=== PATIENT | male | born 1985 | race Caucasian/White ===

== ENCOUNTER 2017-08-17 13:04 | Emergency (ER) | payer BC ==
[2017-08-17] MEDS ORDERED: Lidocaine 1% 10 ML MDV INJECT ONE (15:14)
--- NOTE | 2017-08-17 15:25 | EDM.PDOC ---
ED HPI GENERAL MEDICAL PROBLEM - General Chief Complaint: Laceration Stated Complaint: LEFT LEG LAC Time Seen by Provider: 08/17/17 15:15 Source of Information: Reports: Patient - History of Present Illness INITIAL COMMENTS - FREE TEXT/NARRATIVE: Patient is here for evaluation of a laceration to his left abarca that it occurred just prior to arrival. He states that he was in the process of trimming the tree at his mother's house with a machete and this came down and struck him in the abarca. Patient denies any chronic medical conditions. He is not diabetic. He has no bleeding or clotting disorders. His last tetanus injection was approximately 3 years ago per his report. Onset: Sudden Left Leg Pain Score (Numeric/FACES): 2 Past Medical History - Past Health History Medical/Surgical History: Denies Medical/Surgical History Social & Family History - Family History Family Medical History: Noncontributory - Tobacco Use Smoking Status *Q: Never Smoker - Recreational Drug Use Recreational Drug Use: No ED ROS GENERAL - Review of Systems Review Of Systems: See Below Constitutional: Reports: No Symptoms Musculoskeletal: Reports: No Symptoms Skin: Reports: Wound Neurological: Reports: No Symptoms ED EXAM, SKIN/RASH Exam: See Below Exam Limited By: No Limitations General Appearance: Alert, WD/WN, No Apparent Distress Peripheral Pulses: 2+: Posterior Tibial (L) Extremities: Other (Patient has full range of motion of his left lower extremity.) Neurological: Alert, Oriented, No Motor/Sensory Deficits Skin: Warm, Dry Location, Skin: Lower Extremity, Left, Other (Laceration measuring 7.5 cm. This is fairly straight and not contaminated.) ED SKIN PROCEDURES - Laceration/Wound Repair Left Lower Leg Lac/Wound length In cm: 7.5 Appearance: Subcutaneous, Linear, Clean Distal NVT: Neuro & Vascular Intact Anesthetic Type: Local Local Anesthesia - Lidocaine (Xylocaine): 1% Plain Local Anesthetic Volume: Other (10) Skin Prep: Chlorhexidine (Hibiciens), Saline Exploration/Debridement/Repair: Wound Explored, In a Bloodless Field, No Foreign Material Found Closed with: Sutures Suture Size: 4-0 # of Sutures: 11 Suture Type: Nylon, Interrupted, Simple Sterile Dressing Applied: Provider Tetanus Status Addressed: Yes (Patient reports tetanus shot within the last 3 years.) Complications: No Course - Vital Signs Last Recorded V/S: Last Vital Signs Temp 97.6 F 08/17/17 13:55 Pulse 47 L 08/17/17 13:55 Resp 20 08/17/17 13:55 BP 125/85 08/17/17 13:55 Pulse Ox 100 08/17/17 13:55 - Orders/Labs/Meds Meds: Medications Discontinued Medications Generic Name Dose Route Start Last Admin Trade Name Fauzia PRN Reason Stop Dose Admin Lidocaine HCl 10 ml 08/17/17 15:14 Xylocaine 1% INJECT 08/17/17 15:15 ONETIME ONE - Re-Assessments/Exams Free Text/Narrative Re-Assessment/Exam: 7.5 cm laceration was repaired with 11 simple sutures. Patient tolerated this well. Wound care instructions and monitoring for infection was discussed with patient verbalized understanding. Offered prophylactic antibiotic and he declines this. Tetanus is up-to-date. Patient will follow up with his PCP for suture removal in 7-10 days or return to the emergency room if needed. 08/17/17 21:39 Departure - Departure Time of Disposition: 15:53 Disposition: Home, Self-Care 01 Condition: Good Clinical Impression: Laceration of leg Qualifiers: Encounter type: initial encounter Laterality: left Qualified Code(s): S81.812A - Laceration without foreign body, left lower leg, initial encounter - Discharge Information Instructions: Wound Care, Adult, Laceration Care, Adult, [id number], Stitches , [place], or Adhesive Wound Closure Referrals: Kelby Duke PA-C [Physician Detective Bureau Chief] - Forms: ED Department Discharge Additional Instructions: Keep wound clean and dry. Cover if your pants are rubbing on it or if you're going to be working out in a dirty environment. Monitor for any increasing redness or drainage. Follow-up in the clinic in 7-10 days for suture removal or sooner if needed.
== END 2017-08-17 16:05 | disposition home or self-care (01) ==
LOC: JD.ED 13:04
DX: S81.812A Laceration without foreign body, left lower leg, initial encounter (principal); W22.8XXA Striking against or struck by other objects, initial encounter
CPT/HCPCS: 12002; 99283-25

== ENCOUNTER → 2019-06-22 | Day surgery (SDC) | payer BC ==
[~2019-06-22] MED LIST: Acetaminophen/HYDROcodone 325-5 MG Tab PO SCH; Citric Acid/Sodium Citrate Solution 30 ML Cup ONE; HYDROmorphone 0.5 MG/0.5 ML Syringe IVPUSH PRN; Ketamine 500 mg/10 ML MDV ONE; Lactated Ringers 1,000 ML IV SCH; Lidocaine 1%/Sod Bicarbonate in NS 8.4% 1 ML Syringe IDERM PRN; Metoclopramide 10 MG/2 ML SDV ONE; Midazolam 1 MG/ML 2 ML SDV ONE; Ondansetron 4 MG/2 ML SDV IVPUSH PRN; Ondansetron 4 MG/2 ML SDV ONE; Propofol 200 MG/20 ML SDV ONE; Sodium Chloride 0.9% 10 ML Syringe FLUSH PRN; Succinylcholine/Sod PF 100 MG/5 ML SYRINGE IV ONE; fentaNYL 100 MCG/2 ML SDV IVPUSH PRN; fentaNYL 100 MCG/2 ML SDV ONE
--- NOTE | 2019-06-22 11:41 | PCM.PREANE ---
Preanesthetic Assessment - Procedure Proposed Procedure: right shoulder closed reduction - Anesthesia/Transfusion/Family Hx Anesthesia History: Prior Anesthesia Without Reaction Family History of Anesthesia Reaction: No Transfusion History: No Prior Transfusion(s) - Review of Systems General: No Symptoms Pulmonary: No Symptoms Cardiovascular: No Symptoms Gastrointestinal: No Symptoms Neurological: No Symptoms Other: Reports: None - Physical Assessment NPO Status Date: 06/22/19 NPO Status Time: 09:00 (chicken strips and water) Vital Signs: 143/87 63 95% 16 98.0 Height: 6 ft 3 in Weight: 113.217 kg ASA Class: 2 Mental Status: Alert & Oriented x3 Airway Class: Mallampati = 1 Dentition: Reports: Normal Dentition Thyro-Mental Finger Breadths: 3 Mouth Opening Finger Breadths: 3 ROM/Head Extension: Full Lungs: Clear to Auscultation, Normal Respiratory Effort Cardiovascular: Regular Rate, Regular Rhythm - Blood Blood Available: No - Acknowledgements Anesthesia Type Planned: General Anesthesia, MAC Pt an Appropriate Candidate for the Planned Anesthesia: Yes Alternatives and Risks of Anesthesia Discussed w Pt/Guardian: Yes Pt/Guardian Understands and Agrees with Anesthesia Plan: Yes PreAnesthesia Questionnaire - Past Health History Medical/Surgical History: Denies Medical/Surgical History Cardiovascular History: Reports: None Respiratory History: Reports: None Gastrointestinal History: Reports: None Endocrine/Metabolic History: Reports: Obesity/BMI 30+ - Past Surgical History HEENT Surgical History: Reports: Oral Surgery - SUBSTANCE USE Smoking Status *Q: Former Smoker (high sschool) Tobacco Use Within Last Twelve Months: No Second Hand Smoke Exposure: Yes Days Per Week of Alcohol Use: 2 Number of Drinks Per Day: 6 Total Drinks Per Week: 12 Recreational Drug Use History: No
--- NOTE | 2019-06-22 13:06 | PCM.POSTAN ---
POST ANESTHESIA ASSESSMENT - MENTAL STATUS Mental Status: Alert, Oriented - VITAL SIGNS Vital Signs: Last Vital Signs Temp 99.0 F 06/22/19 11:18 Pulse 63 06/22/19 11:18 Resp 16 06/22/19 11:18 BP 143/87 H 06/22/19 11:18 Pulse Ox 95 06/22/19 11:18 1254 154/101 99% 86 21 97.2 - RESPIRATORY Respiratory Status: Respiratory Rate WNL, Airway Patent, O2 Saturation Stable, Supplemental Oxygen - CARDIOVASCULAR CV Status: Pulse Rate WNL, Blood Pressure Stable - GASTROINTESTINAL GI Status: No Symptoms - PAIN Pain Score: 4 (throat is sore and shoulder hurts) - POST OP HYDRATION Hydration Status: Adequate & Stable
--- NOTE | 2019-06-22 13:21 | CR ---
Right shoulder: Single fluoroscopic spot view of the right shoulder was obtained utilizing C-arm device. Dislocated right shoulder is seen with impacted fracture being noted. Fluoroscopy time given as 105.7 seconds. Impression: 1. Dislocated right shoulder with impacted fracture. Diagnostic code #3 Study was dictated in MDT
--- NOTE | 2019-06-22 14:02 | PCM48HPAN ---
Post Anesthesia Note - EVALUATION WITHIN 48HRS OF ANESTHETIC Vital Signs in Normal Range: Yes Patient Participated in Evaluation: Yes Respiratory Function Stable: Yes Airway Patent: Yes Cardiovascular Function Stable: Yes Hydration Status Stable: Yes Pain Control Satisfactory: Yes (06/14, tolerable) Nausea and Vomiting Control Satisfactory: Yes Mental Status Recovered: Yes Vital Signs: Last Vital Signs Temp 98.3 F 06/22/19 13:45 Pulse 66 06/22/19 13:45 Resp 11 L 06/22/19 13:45 BP 152/84 H 06/22/19 13:45 Pulse Ox 97 06/22/19 13:45 - COMMENTS/OBSERVATIONS Free Text/Narrative:: Patient is ready to be discharged home, instructions provided. Will return on Mod[place] 06/24 for ORIF
--- NOTE | 2019-06-23 08:10 | CT ---
CT right shoulder Technique: Multiple axial sections were obtained through the right shoulder. Reconstructed coronal and sagittal images were obtained. Findings: Inferior and anterior dislocation is noted of the humeral head in relation to the glenoid. Comminuted impaction fracture is seen from the inferior and anterior glenoid. There is displacement of fracture fragments in a lateral direction up to 1.7 cm. No discrete scapular fracture is appreciated. Parenchymal density is noted posteriorly within the right lung most likely representing atelectasis. Impression: 1. Inferior and anterior dislocation of the right shoulder. 2. Comminuted fracture with displacement caused by impaction of the inferior and anterior glenoid above the right humeral head. 3. Increased density posteriorly within the right lung most likely representing atelectasis. Diagnostic code #3 Study was dictated in MDT MTDD
--- NOTE | 2019-06-28 18:20 | PCM.OPNOTE ---
- General Post-Op/Procedure Note Date of Surgery/Procedure: 06/22/19 Operative Procedure(s): closed reduction attempt of right shoulder fracture dislocation Pre Op Diagnosis: right shoulder anterior fracture dislocation Post-Op Diagnosis: Same Anesthesia Technique: General ET Tube Primary Surgeon: Marvin Burger Anesthesia Provider: Jj Beckwith E[place] in mLs: 0 Complications: None Condition: Good
--- NOTE | 2019-06-29 08:10 | OR ---
DATE OF OPERATION: 06/22/2019 SURGEON: Marvin Burger MD OPERATION PERFORMED: Closed reduction attempt of right shoulder fracture dislocation. PREOPERATIVE DIAGNOSIS: Right shoulder anterior fracture dislocation. POSTOPERATIVE DIAGNOSIS: Right shoulder anterior fracture dislocation. ANESTHESIA: General endotracheal intubation. ANESTHESIA PROVIDER: Jj Beckwith CRNA. POLISHER AND BUFFER: None. ESTIMATED BLOOD LOSS: Not applicable. COMPLICATIONS: None. CONDITION: Stable. DESCRIPTION OF PROCEDURE: The patient was identified in the preop holding area. Proper site was marked and identified. The patient was taken back to the operative theater where after time-out was performed a closed reduction attempt was performed on the patient's right shoulder anterior fracture dislocation. Secondary to the large engaging fracture bed of the greater tuberosity, it was hooked around the anterior portion of the glenoid and its chronicity of nearly being 6 weeks out. This led to the failed attempt of the anterior shoulder dislocation relocation. At this time, the patient was sent to the PACU in a sling, and we will plan for open reduction next Tuesday. MMODAL /[id number]
== END | disposition home or self-care (01) ==
LOC: JD.SDS 11:12
PROVIDERS: ATTEND Orthopaedic Surgery
DX: S42.141A Displaced fracture of glenoid cavity of scapula, right shoulder, initial encounter for closed fracture (principal); I10 Essential (primary) hypertension; E66.9 Obesity, unspecified; X58.XXXA Exposure to other specified factors, initial encounter; Z68.31 Body mass index [BMI] 31.0-31.9, adult
CPT/HCPCS: 23575; 73200; 76000; 76377; 87641; A9270; J0330; J2250; J2405; J2704; J2765; J3010; J7120

== ENCOUNTER 2019-06-25 06:33 | Day surgery (SDC) | payer BC ==
--- NOTE | 2019-06-24 12:56 | PCM.PREANE ---
Preanesthetic Assessment - Procedure Proposed Procedure: ORIF of right shoulder dislocation of greater tuberosity fracture. - Anesthesia/Transfusion/Family Hx Anesthesia History: Prior Anesthesia Without Reaction Family History of Anesthesia Reaction: No Transfusion History: No Prior Transfusion(s) Intubation History: Unknown - Review of Systems General: No Symptoms Pulmonary: No Symptoms (Former smoker in high school. ETOH: twice/week(6) drinks /No recreational drugs) Cardiovascular: No Symptoms Gastrointestinal: No Symptoms Neurological: No Symptoms Other: Reports: None - Physical Assessment NPO Status Date: 06/25/19 NPO Status Time: 00:01 Vital Signs: HR:81 SAT:95% BP:158/96 RESP:17 TEMP:97.9 Height: 1.91 m Weight: 111 kg ASA Class: 2 Mental Status: Alert & Oriented x3 Airway Class: Mallampati = 2 Dentition: Reports: Normal Dentition, Caries Thyro-Mental Finger Breadths: 3 Mouth Opening Finger Breadths: 3 ROM/Head Extension: Full Lungs: Clear to Auscultation, Normal Respiratory Effort Cardiovascular: Regular Rate, Regular Rhythm, No Murmurs - Lab Values: MRSA: negative All labs reviewed and noted and within acceptable ranges to proceed with scheduled procedure. - Allergies Allergies/Adverse Reactions: Allergies Allergy/AdvReac Type Severity Reaction Status Date / Time No Known Allergies Allergy Verified 06/25/19 07:04 - Anesthesia Plan Pre-Op Medication Ordered: None - Acknowledgements Anesthesia Type Planned: General Anesthesia (With a Right ISB under US guidance for post operative pain control requested by Dr. Burger.) Pt an Appropriate Candidate for the Planned Anesthesia: Yes Alternatives and Risks of Anesthesia Discussed w Pt/Guardian: Yes Pt/Guardian Understands and Agrees with Anesthesia Plan: Yes PreAnesthesia Questionnaire - Past Health History Medical/Surgical History: Denies Medical/Surgical History Cardiovascular History: Reports: None Respiratory History: Reports: None Gastrointestinal History: Reports: None Endocrine/Metabolic History: Reports: Obesity/BMI 30+ - Past Surgical History HEENT Surgical History: Reports: Oral Surgery - SUBSTANCE USE Smoking Status *Q: Never Smoker Recreational Drug Use History: No - HOME MEDS Home Medications: Home Meds Acetaminophen/HYDROcodone [[place] 325-5 MG] 1 - 2 tab PO Q6H PRN #20 tablet 06/24 [Rx] - CURRENT (IN HOUSE) MEDS Current Meds: Current Medications Lactated Ringer's (Ringers, Lactated) 1,000 mls @ 125 mls/hr IV ASDIRECTED DANYA Stop: 06/25/19 23:00 Lidocaine/Sodium Bicarbonate (Buffered Lidocaine 1% In Ns 8.4%) 0.25 ml IDERM ONETIME PRN PRN Reason: Prior to IV Start Stop: 06/25/19 18:00 Sodium Chloride (Saline Flush) 10 ml FLUSH ASDIRECTED PRN PRN Reason: Keep Vein Open Stop: 06/25/19 18:00
[~2019-06-25 06:33] MED LIST changes: -Acetaminophen/HYDROcodone 325-5 MG Tab PO SCH; -Citric Acid/Sodium Citrate Solution 30 ML Cup ONE; -HYDROmorphone 0.5 MG/0.5 ML Syringe IVPUSH PRN; -Ketamine 500 mg/10 ML MDV ONE; +Lidocaine 1% 2 ML ONE; -Metoclopramide 10 MG/2 ML SDV ONE; -Midazolam 1 MG/ML 2 ML SDV ONE; -Ondansetron 4 MG/2 ML SDV IVPUSH PRN; -Ondansetron 4 MG/2 ML SDV ONE; -Propofol 200 MG/20 ML SDV ONE; -Succinylcholine/Sod PF 100 MG/5 ML SYRINGE IV ONE; -fentaNYL 100 MCG/2 ML SDV IVPUSH PRN; -fentaNYL 100 MCG/2 ML SDV ONE
[2019-06-25] MEDS ORDERED: EPINEPHrine 1 MG/ML SDV ONE (06:34)
[2019-06-25] MEDS ORDERED: Ropivacaine 0.5% 5 MG/ML 30 ML SDV ONE (06:34)
[2019-06-25] MEDS ORDERED: Lactated Ringers 1,000 ML ONE ×2 (07:04→09:55)
[2019-06-25] MEDS ORDERED: Lidocaine 1% 6 ML ONE (07:04)
[2019-06-25] MEDS ORDERED: ceFAZolin 1 GM Vial ONE (07:04)
[2019-06-25] MEDS ORDERED: Propofol 200 MG/20 ML SDV ONE (07:04)
[2019-06-25] MEDS ORDERED: Ketorolac 30 MG/ML SDV ONE (07:04)
[2019-06-25] MEDS ORDERED: Midazolam 1 MG/ML 2 ML SDV ONE (07:04)
[2019-06-25] MEDS ORDERED: Dexamethasone 4 MG/ML 5 ML MDV ONE (07:04)
[2019-06-25] MEDS ORDERED: Ondansetron 4 MG/2 ML SDV ONE (07:04)
[2019-06-25] MEDS ORDERED: Rocuronium 50 MG/5 ML Vial ONE ×2 (07:04→09:13)
[2019-06-25] MEDS ORDERED: fentaNYL 250 MCG/5 ML SDV ONE ×2 (07:05→07:59)
--- NOTE | 2019-06-25 07:47 | PCM.SN ---
- Free Text/Narrative Note: Date: 06/25/2019 Time Out: 0725 Start: 726 Stop: 738 Current Procedure: Right interscalene block under US guidance for postoperative pain control requested by Dr. Burger. Patient chart reviewed, risk/benefits discussed with patient, consent obtained. Patient positioned supine, monitors/alarms on, oxygen placed via nasal cannula at 2 LPM. IV sedation administered: Versed 2mg IV, Fentanyl 150mcg IV given in preop prior to block placement. Right shoulder prepped with two chloropreps. Sterile drapes placed with aseptic technique noted. Under US guidance, right subclavian artery visualized along with the right brachial plexus. Plexus followed up to C6 cricoid level, and area localized with 2mls of 1% lidocaine. 22gauge 2 inch stimiplex needle advanced under US with 0.6mV with stimulation of biceps noted. Good stimulation noted with decreased voltage and absent at 0.4mVs. 1ml of Normal Saline injected with loss of stimulation noted to confirm needle not placed intraneurally. Incremental dosing of 5mls with negative aspiration noted prior to each injection of 0.5% ropivacaine with 1:200,000 epinephrine. Total volume=25mls. Please refer to nurses noted for vital signs. Azalea Mehta CRNA TeleHealth - TeleHealth Patient Service Facility: [facility]: [facility] Informed Consent: Telemedicine Audio/Visual Informed Consent: The risks, benefits, and alternatives to the telehealth visit were explained to the patient and the patient consented to this modality of care. The telehealth visit was carried out via a secure, web-based conferencing system. This telemedicine service was a real-time, two-way interactive video and communication between the patient and the provider. All the parties involved were identified and approved by the patient prior to the visit. Any physical exam was assisted by the patient. Unless noted otherwise, the provider was located at their usual clinic location , and the patient was at their place of residence. Patient identity was confirmed by having the patient state their name and date of . All communications with the patient (verbal, audiovisual, and written) were documented in the patients medical record per documentation standards.
[2019-06-25] MEDS ORDERED: Albuterol 0.083% 2.5 MG/3 ML Neb Soln NEB PRN (08:28)
[2019-06-25] MEDS ORDERED: Ondansetron 4 MG/2 ML SDV IVPUSH PRN (08:28)
[2019-06-25] MEDS ORDERED: fentaNYL 100 MCG/2 ML SDV IVPUSH PRN (08:28)
[2019-06-25] MEDS ORDERED: HYDROmorphone 0.5 MG/0.5 ML Syringe IVPUSH PRN (08:29)
--- NOTE | 2019-06-25 11:36 | PCM.POSTAN ---
POST ANESTHESIA ASSESSMENT - MENTAL STATUS Mental Status: Alert - VITAL SIGNS Vital Signs: Last Vital Signs Temp 36.2 C 06/25/19 11:30 Pulse 69 06/25/19 11:30 Resp 15 06/25/19 11:30 BP 157/94 H 06/25/19 11:30 Pulse Ox 98 06/25/19 11:30 - RESPIRATORY Respiratory Status: Respiratory Rate WNL, Airway Patent, O2 Saturation Stable, Supplemental Oxygen - CARDIOVASCULAR CV Status: Pulse Rate WNL, Blood Pressure Stable - GASTROINTESTINAL GI Status: No Symptoms - POST OP HYDRATION Hydration Status: Adequate & Stable
--- NOTE | 2019-06-25 11:49 | PCM48HPAN ---
Post Anesthesia Note - EVALUATION WITHIN 48HRS OF ANESTHETIC Vital Signs in Normal Range: Yes Patient Participated in Evaluation: Yes Respiratory Function Stable: Yes Airway Patent: Yes Cardiovascular Function Stable: Yes Hydration Status Stable: Yes Pain Control Satisfactory: Yes Nausea and Vomiting Control Satisfactory: Yes Mental Status Recovered: Yes Vital Signs: Last Vital Signs Temp 36.4 C 06/25/19 11:45 Pulse 65 06/25/19 11:45 Resp 15 06/25/19 11:45 BP 155/96 H 06/25/19 11:45 Pulse Ox 97 06/25/19 11:45
--- NOTE | 2019-06-25 11:51 | CR ---
Right shoulder: 9 fluoroscopic spot views were obtained of the right shoulder utilizing C arm device. Comparison: Previous CT right shoulder study of 06/22/19 and right fluoroscopic shoulder exam of 06/22/19. Study shows reduction of previous dislocation. Fracture is again noted. Fluoroscopy time is given as 105.7 seconds. Impression: 1. Findings as noted above. Diagnostic code #2 This report was dictated in MDT
[2019-06-25] MEDS ORDERED: Acetaminophen/HYDROcodone 325-5 MG Tab PO SCH (13:01)
--- NOTE | 2019-06-28 18:24 | PCM.OPNOTE ---
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
--- NOTE | 2019-06-29 09:06 | OR ---
DATE OF OPERATION: 06/25/2019 SURGEON: Marvin Burger MD OPERATIVE PROCEDURE: Open reduction internal fixation of right greater tuberosity with open reduction of right anterior shoulder dislocation with open capsular shift. PREOPERATIVE DIAGNOSIS: Right anterior chronic fracture dislocation with greater tuberosity fracture. POSTOPERATIVE DIAGNOSIS: Right anterior chronic fracture dislocation with greater tuberosity fracture. ANESTHESIA: General endotracheal intubation with regional interscalene block. ANESTHESIA PROVIDER: Azalea Mehta CRNA. ASSISTANTS: Beth Victoria PA-C, and Siobhan Mi LPN. ESTIMATED BLOOD LOSS: 400 mL. COMPLICATIONS: None. CONDITION: Stable. DESCRIPTION OF PROCEDURE: The patient was identified in the preop holding area. Proper site was marked and identified by the surgeon. The patient was taken back to the operative theater where after adequate anesthesia OR time-out was performed. The patient received 2 g IV Ancef. He was placed in a reverse Trendelenburg position and standard deltopectoral incision was made. This was taken down cephalic vein, which was identified and was retracted laterally and the deltopectoral interval was made. The patient did have significantly large shoulder, which did make it a little more difficult along with the patient's chronic dislocation distorting anatomy. Now, I was able to identify the coracoid as well as the conjoined tendon and palpate the biceps tendon. At this time, I was able to attempt a closed reduction maneuver, but it again failed as the humerus was lodged behind the anterior portion of the glenoid and under the conjoined tendon with the biceps tendon dislocated. At this point, an incision was made at the biceps tendon and a biceps tenotomy was then performed and a subpectoral tenodesis was open. Subpectoral tenodesis was then performed at this time. I decided at this point that I would do a takedown of the subscapularis tendon and then anterior capsular shift after reduction, I did an incision of the subscapularis tendon roughly 1 cm medial to its insertion on the lesser tuberosity. This was then tagged with #5 FiberWire and was peeled back from the capsule. A capsulotomy was performed off the anterior humerus around the neck. Even after this though secondary to the chronicity, it became very difficult to reduce this. There were pieces of the greater tuberosity that were nonviable, that were just in the wound bed and when we irrigated would come out of the wound bed as most of them were nonviable and not attached to any tissue at this point any longer. After doing the open capsulotomy, I had to place my fingers around the humeral head, placed it into position so that we come unlocked, but it was still very difficult secondary to the chronicity of this fracture dislocation and the patient's BMI. After this, though I was able to get it reduced and decided to do an anterior capsular shift. The capsule then was brought over with anchors and then #5 FiberWire [id number] stitches were used to repair the subscapularis tendon as well as an anterior capsular shift, so that the patient was a little more tight in external rotation, but it kept the patient from dislocating as he was subluxing anteriorly with motion of the shoulder otherwise. After the anterior capsular shift was completed. Attention was turned to the greater tuberosity fragment. At this point, again there was very little bone. There was a piece of bone posteriorly that was completely scarred in. It was very difficult to get to, but I was able to grab some of the bone at this point, but there was not enough bone for a plate. I decided at this time to place anchors around the head as well as into the bicipital groove. I then used a FastPass with three 4.75 mm Arthrex anchors and then placed them and then brought the FiberTape sutures through the tuberosity fragments that were remaining as well as the rotator cuff and supra and infraspinatus tendons and then placed the anchors so that it repaired the supraspinatus and infraspinatus into the large Hill-Sachs defect as well as the greater tuberosity fragment pieces that were able to remain, placed them in the bed for healing. It had adequate amish of the supraspinatus and there was just the rotator interval left after the anchors were placed in the bicipital groove and around the humeral head and had adequate fixation and was staying reduced throughout C- arm fluoroscopy. At this time, adequate saline was irrigated through the wound bed, 2-0 Vicryl was used subcutaneously, and Prineo was used for the skin. The patient was placed in a shoulder immobilizer and sent to the PACU in stable condition. OPERATION PERFORMED: MMODAL /[id number]
== END 2019-06-25 15:17 | disposition home or self-care (01) ==
LOC: JD.SDS 06:33
PROVIDERS: ATTEND Orthopaedic Surgery
DX: S42.251A Displaced fracture of greater tuberosity of right humerus, initial encounter for closed fracture (principal); E66.9 Obesity, unspecified; Z68.30 Body mass index [BMI] 30.0-30.9, adult; X58.XXXA Exposure to other specified factors, initial encounter
CPT/HCPCS: 23670; 76000; A9270; J0171; J0690; J1100; J1885; J2001; J2250; J2405; J2704; J2710; J2795; J3010; J7120; 01620; 64415; C1713